=== PATIENT | female | born 1975 | race Caucasian/White ===

== ENCOUNTER 2018-09-22 09:11 | Emergency (ER) | payer OTHER ==
[~2018-09-22] VITALS: Ht 157.5 cm; Wt 90.7 kg
[~2018-09-22 09:11] MED LIST: LEVOTHYROXIN0.125 M1 PO; ZOLOFT25 MG PO
[2018-09-22] MEDS ORDERED: ZYRTEC10 M5 PO (09:28)
[2018-09-22 09:55] LABS: ABSOLUTE EOSINOPHILS 0.1 thou/uL (0.0-0.7); ABSOLUTE MONOCYTES 0.5 thou/uL (0.0-1.2); BASOPHILS 0.6 %; HEMATOCRIT 37.2 % (37.0-47.0); HEMOGLOBIN 12.3 gm/dL (12.0-15.0); MCH 28.8 pg (26.0-34.0); MCV 87.2 fL (80.0-100.0); MONOCYTES 6.9 %; MPV 7.1 fl. (7.2-11.1); NUCLEATED RBCS 0 /100WBC; PLATELET COUNT* 341 thou/uL (150-400); POLYS 65.5 %; RBC 4.26 mil/uL (4.20-5.00); RDW-CV 15.1 % (10.5-14.5); WBC 7.6 thou/uL (4.0-11.0)
[2018-09-22 10:07] LABS: ALBUMIN 3.6 g/dL (3.4-5.0); CALCIUM 9.4 mg/dL (8.5-10.1); CREATININE 0.7 mg/dL (0.6-1.3); POTASSIUM 4.1 mmol/L (3.5-5.1); TOTAL BILIRUBIN 0.2 mg/dL (<0.1-1.0); TOTAL PROTEIN 7.6 g/dL (6.4-8.2)
[2018-09-22] MEDS ORDERED: NORCO 5-325 TA1 EACH PO (10:16)
[2018-09-22] MEDS ORDERED: FLEXERIL PO (10:16)
[2018-09-22 11:06] VITALS: BP 126/71
--- NOTE | 2018-09-22 15:30 | EKG ---
[place] [address] ELECTROCARDIOGRAM REPORT Name: TAMI RITTER Room: [facility]#: [id number] Admission: 09/22/18 Attend Phys: Discharge: 09/22/18 Date of : 75 Report #: [id number] THIS REPORT FOR: //name// [facility] ED Test Date: 2018-09-22 Test Time: 09:49:19 Pat Name: TAMI RITTER Department: Room: Gender: F Hiv Nurse: : 1975 Requested By: Real Iverson Order Number: [id number] MD: Hong Montano Measurements Intervals [place] Rate: 79 P: 13 OK: 145 QRS: -12 QRSD: 104 T: 12 QT: 362 QTc: 416 Interpretive Statements Sinus rhythm Low voltage, precordial leads RSR' in V1 or V2, right VCD or RVH Compared to ECG 08/16/2015 13:27:04 Low QRS voltage now present Electronically Signed On 09-22-2018 15:30:46 CDT by Hong Montano [email or web address] <ELECTRONICALLY SIGNED> By: Hong Montano MD, [facility] 09/22/18 1530 0949 0949 Hong Montano MD, [facility] /EPI
== END 2018-09-22 11:08 | disposition home or self-care (01) ==
LOC: M.ERS 09:11
PROVIDERS: Family Medicine
DX: S23.41XA Sprain of ribs, initial encounter (principal); E03.9 Hypothyroidism, unspecified; Z98.890 Other specified postprocedural states; Z91.012 Allergy to eggs; Z88.0 Allergy status to penicillin; X58.XXXA Exposure to other specified factors, initial encounter; Y93.89 Activity, other specified; Y92.89 Other specified places as the place of occurrence of the external cause; Y99.8 Other external cause status